=== PATIENT | male | born 1940 | race Caucasian/White ===

== ENCOUNTER → 2016-05-02 | Outpatient (CLI) | payer MEDICARE ==
[~2016-05-02] MED LIST: ASPIRIN LO-DOSE81 MG PO; LEVOTHROID(SYN75 MCG PO; LOPRESSOR25 MG PO
--- NOTE | ~2016-05-02 | ESTC ---
Cardiac Perfusion Imaging Demographics Patient Name KATERINA Vinson Gender Male Patient Number [id number] Race Visit Number [id number] Ethnicity Corporate ID Room Number Accession Number [id number] Height 71 inches Date of 1940 Weight 270 pounds Manny Manriquez Interpreting Physician Manny Date of study 05/02/2016 Mitra Supervising /EMILY Hood APRN NM Technologist Nidia Martinez Ordering Physician Stress lead slot technician Stress ECG Reading Jose Hood APRN Nurse Rita Polo RN Physician The procedure was explained in detail to the patient. Risks, complications and alternative treatments were reviewed. Written consent was obtained. Medications Reviewed with Patient prior to Procedure. Procedure Admit Source:Other. Procedure Type: Nuclear Stress Test:Exercise, Cardiolite Stress Test Procedure Start time: 05/02/2016 00:00 Indications: Dyspnea. Risk Factors The patient risk factors include:obesity, former tobacco use, hypercholesterolemia, family history of premature CAD and dyslipidemia. Conclusions Summary Perfusion Images: The overall quality of the study is good. Left ventricular cavity is noted to be normal on the stress and rest studies. There is no evidence of abnormal lung activity. The right ventricle is not visualized and cannot be assessed. Stress SPECT images and Rest SPECT images demonstrate homogenous tracer distribution throughout the myocardium except for a decrease uptake in the area involving the inferior wall with minimal reversibility in the basal inferior wall mostly consistent with soft tissue attenuation. Gated SPECT imaging reveals normal myocardial thickening and wall motion. The left ventricular ejection fraction was calculated to be 65%. Impression ECG portion of stress test is clinically negative for ischemia by diagnostic criteria. The inferior wall mostly matched defect with minimal reversibility in the basal inferior wall is likely due to soft tissue attenuation. Overall left ventricular systolic function was normal without regional wall motion abnormalities. There are no previous studies for comparison . Stress Protocols Resting ECG Normal sinus rhythm. Resting HR:68 bpm Resting BP:143/77 mmHg Pre-stress physical exam: Patient assessed by Mihai JIMENEZ prior to testing. Chest - CTA Cardio - RRR, S1, S2 Stress Protocol:Exercise Peak HR:134 bpm HR response: Appropriate Peak BP:160/82 mmHg BP response: Appropriate Predicted HR: 143 bpm HR/BP product:51716 % of predicted HR: 94 Reason for termination:Target heart rate ECG Findings No ECG changes suggestive of ischemia. Arrhythmias Rare PVC's during peak exercise Symptoms Shortness of breath - Similar to walking up a flight of stairs at home. Complications Procedure complication: None. Stress Interpretation Walked for 4.5 minutes through 2 stages of Fred Protocol. Appropriate hemodynamic response to exercise. No significant ST-T wave changes with exercise. EKG portion is negative for ischemia by diagnostic criteria. The Owens Treadmill score was 4.5 .This corresponds to a moderate risk stress test. Will correlate with nuclear images. Imaging Results Summed scores - Summed stress score: 2 - Summed rest score: 2 - Summed difference score: 0 Stress ejection Ejection fraction:64 % EDV :95 ml ESV :34 ml Stroke volume :61 ml LV mass :130 gr Imaging Protocols Rest Stress Isotope:Tc99m Sestamibi IV Isotope: Tc99m Sestamibi IV Isotope dose:15.2 mCi Isotope dose:45.5 mCi Date:05/02/2016 07:10 Date:05/02/2016 09:14 Technique: SPECT Technique: Gated Supine SPECT Supine Scan Time:45-60 minutes post Scan Time:45-60 minutes post injection injection Medical History Admission Medications + +------+ + + +---------+ !Name !Dosage!Times per day !Start date !Stop date !Details ! + +------+ + + +---------+ !Aspirin (any) ! ! ! ! ! ! + +------+ + + +---------+ Admission Data Admission date: 05/02/2016 Admission Time: 06:56 Hospital Status: Outpatient. Signatures dtt: MITRA HUMPHREYS dtd: 05/02/16 0000 Physician Self Edit
== END | disposition disaster alternative care site (69) ==
LOC: GRAD 06:56
DX: R07.9 Chest pain, unspecified (principal); E66.9 Obesity, unspecified; E78.00 Pure hypercholesterolemia, unspecified; E78.5 Hyperlipidemia, unspecified; R06.00 Dyspnea, unspecified; Z86.79 Personal history of other diseases of the circulatory system
CPT/HCPCS: A9500

== ENCOUNTER → 2016-05-02 | Outpatient (CLI) | payer MEDICARE ==
--- NOTE | ~2016-05-02 | PUL ---
PATIENT'S NAME: ERA BORGES [facility] AGE: 76 Y [address] ROOM: [place] [address] LOCATION: [facility] ADMIT DATE: 05/02/2016 Pulmonary DISCHARGE DATE: FAMILY PHYSICIAN: Thomas Washburn MD ATTENDING PHYSICIAN: JARED HUMPHREYS NAME OF PROCEDURE: Pulmonary Function Test DATE OF PROCEDURE: May 02, 2016. TECH: JHoyt, SAF[employer]OX[employer] CUSTODIAN REASON FOR EXAM: Dyspnea RESULTS: 1. FVC was 3.91 liters which is 92% of predicted and normal, FEV1 was 3.15 which is 103% of predicted and normal, and FEV1/FVC was 80% and normal. The flow volume curve revealed flattening of the inspiratory curve which can be suggestive of fixed upper airway obstruction. After bronchodilator administration FVC increased to 4.68 liters which is a 20% increase and FEV1 increased to 3.89 liters which is a 23% increase. FEV1/FVC was 83%. 2. DLCO was 20.4 with an adjusted DLCO of 20.7 which is 81% of predicted and normal. 3. Total lung capacity was 7.55 liters which is 116% of predicted and high, and residual volume was 3.03 liters which is 112% of predicted and normal. PHYSICIAN INTERPRETATION: The patient has possible fixed upper airway obstruction but has no airflow limitation during expiratory phase. He had a positive bronchodilator response. His diffusion capacity is normal. There is evidence of hyperinflation on the lung volumes. MD ROSINA FABIAN/joanna /[id number] dtt: 05/09/16 0755 , XIN VALENZUELA dtd: 05/08/16 1126
== END | disposition disaster alternative care site (69) ==
LOC: GRTH 16:53
DX: R07.9 Chest pain, unspecified (principal); R06.00 Dyspnea, unspecified

== ENCOUNTER 2016-05-17 06:54 | Outpatient (CLI) | payer MEDICARE ==
[~2016-05-17] VITALS: Ht 179.1 cm; Wt 121.0 kg
--- NOTE | ~2016-05-17 | CATH ---
Cardiac Diagnostic Report Demographics Patient Name KATERINA Vinson Gender Male Date of 1940 Age 76 year(s) Patient Number [id number] Date of Study 05/17/2016 Visit Number [id number] Room Number G63[address] [place] [id number] Ht 177.8 cm Wt 121 kg Referring Wu Sigala MD Primary Physician Physician Performing Yerra Secondary Physician Physician Mitra Diagnostic Dukerra Assisting Physician Physician Mitra Interventional Physician Commercial Drafter Physician Findings and Conclusions Diagnostic Findings and Conclusion Co-Dominant L Main: No significant stenosis LAD: Mid 20% stenosis L CX: No significant epicardial disease RCA: mid 20% stenosis Diagnostic Recommendations 2. Medical Therapy. Procedure Description The patient was brought to the diagnostic cardiac catheterization-EP laboratory in the fasting, non-sedated state. Informed consent was obtained in the written and verbal form after the risks and benefits were explained. The patient had no further questions and agreed to proceed. The planned puncture-incision site(s) were shaved and prepped with ChloraPrep and draped in the usual sterile manner. Conscious sedation, supplemental oxygen, and pain control medications were delivered by a registered nurse under physician guidance. Surface ECG rhythm, blood pressure measurement, and pulse oximetry were monitored throughout the procedure. Arterial access. The access site on right wrist was infiltrated with lidocaine. The vessel was entered with the Seldinger technique. A sheath was advanced into the vessel and used for catheter placement. Selective left coronary angiography. A catheter was advanced into the left coronary vessel ostium under Fluoroscopic guidance. Contrast was injected by hand. Images were obtained in multiple projections. Selective right coronary angiography. A catheter was advanced into the right coronary vessel ostium under fluoroscopic guidance. Contrast was injected by hand. Images were obtained in multiple projections. Arterial artery hemostasis was achieved. The patient was transferred to a regular nursing floor via cart accompanied by a nurse. The patient left the laboratory in stable condition. Diagnostic Cath Status: Elective Procedure Procedure Type Diagnostic procedure:Angiography:, Coronary Angios Indications: Positive Standard Stess: Intermediate. The procedure was explained in detail to the patient. Risks, complications and alternative treatments were reviewed. Written consent was obtained. Medications Reviewed with Patient prior to Procedure. Angiographic Findings Dominance: Mixed Cardiac Arteries and Lesion Findings LMCA: Normal (0% Stenosis). LAD: Abnormal. Lesion on Mid LAD: Mid subsection.30% stenosis . LCx: Normal (0% Stenosis). RCA: Abnormal. Lesion on Mid RCA: Mid subsection.20% stenosis . Coronary Tree Procedure Data Procedure Date Date: 05/17/2016Start: 09:18 AMEnd: 09:50 AM Entry Locations - Retrograde Percutaneous access was performed through the Right Radial artery (Primary location). A 6 Fr sheath was inserted. Hemostasis was successfully obtained using Mechanical Compression. Closure Comments: 14 in the r-band. Done by janell limon. Procedure Medications Order and Administration + + + +-------+ !Time !Medication !Dosage !Route ! + + + +-------+ !05/17/2016 09:13 AM !Versed !1 mg !I.V. ! + + + +-------+ !05/17/2016 09:13 AM !Fentanyl !50 mcg !I.V. ! + + + +-------+ !05/17/2016 09:25 AM !Radial Verapamil !1.5 mg !I.A. ! + + + +-------+ !05/17/2016 09:26 AM !Radial Nitroglycerin !200 mcg !I.A. ! + + + +-------+ !05/17/2016 09:28 AM !Heparin (ACC_3) !5000 units !I.V. ! + + + +-------+ !05/17/2016 09:28 AM !Oxygen !2 l/min !NC ! + + + +-------+ !05/17/2016 09:43 AM !Oxygen !0 l/min !NC ! + + + +-------+ Devices Used - A5 Fr. BS JR 4 Diag. Catheterwas used for:Right coronary angiography. - A5 Fr. BS JL 3.5 Diag. Catheterwas used for:Left coronary angiography. Contrast Material - Isovue 46258 ml Fluoroscopy Time: Diagnostic: 4:36 minutes. Total: 4:36 minutes. Fluoroscopy Dose: Diagnostic: 945 mGy. Total: 945 mGy. Estimated Blood Loss: 10 ml. Medical History Risk Factors The patient risk factors include:treated and uncontrolled hypercholesterolemia, treated and uncontrolled hypertension, family history of premature CAD, dyslipidemia and former tobacco use. Admission Data Admission Date: 05/17/2016 Admission Time: 06:54 AM Admit Source: Other Insurance Payors: Medicare. Admission Medications + +------+------+ + + + + !Medication !Dosage!Times !Last !Last !Administered !Comments ! ! ! !Per !Delivery !Delivery ! ! ! ! ! !Day !Date !Time ! ! ! + +------+------+ + + + + !Aspirin ! ! ! ! ! ! ! !(any) ! ! ! ! ! ! ! + +------+------+ + + + + !Beta ! ! ! ! ! ! ! !Sandra ! ! ! ! ! ! ! !(any) ! ! ! ! ! ! ! + +------+------+ + + + + Clinical Evaluation Leading to Procedure - The patient's CAD presentation was assessed as: Unstable angina. - The patient's anginal syndrome during the past two weeks was assessed as: Class II according to the [place] Cardiovascular Society Classification System (CCS). Anti-anginal medications were prescribed during the past two weeks. The medication is: Beta Blockers. Hemodynamics Condition: Rest O2 Consumption: Estimated: 260.62Heart Rate: 59 bpm Pressures (mmHg) +-----+ + !Site !Pressure ! +-----+ + !AO !87/59 (71) ! +-----+ + Shunts Oxygen Values O2 Capacity 198.56 O2 Consumption 260.62 Signatures dtt: MITRA HUMPHREYS dtd: 05/17/16 0918 Physician Self Edit
[2016-05-17 07:26] LABS: BASOPHIL # 0.1 K/uL (0.0-0.2); BASOPHIL % 0.5 %; EOSINOPHIL # 0.2 K/uL (0.0-0.5); EOSINOPHIL % 1.4 %; HEMATOCRIT 43.6 % (37.0-53.0); HEMOGLOBIN 14.6 g/dL (11.0-16.0); IMMATURE GRANULOCYTE % 0.3 %; LYMPHOCYTE # 4.2 K/uL (0.8-4.0); MCH 29.3 pg (27.0-34.0); MCHC 33.5 gm/dL (32.0-36.5); MCV 87.4 fl (83.0-98.0); MONOCYTE # 0.7 K/uL (0.0-1.0); MONOCYTE % 6.5 %; MPV 9.5 fl (9.4-12.4); NEUTROPHIL # (ANC) 5.6 K/uL (1.4-9.0); NEUTROPHIL % 52.3 %; NRBC % 0 /100WBC (0-0.00); PLATELET COUNT 223 K/uL (150-450); RBC 4.99 M/uL (3.50-5.50); RDW-CV 13.2 % (11.9-14.6); WBC 10.8 K/uL (4.0-11.0)
[2016-05-17 07:34] LABS: PROTIME 10.8 SECONDS (9.6-11.1); PTT 28 SECONDS (25-32)
[2016-05-17 07:42] LABS: ALBUMIN 3.9 gm/dL (3.5-5.0); ANION GAP 12.4 (10.0-19.0); CALCIUM 8.4 mg/dL (8.5-10.5); CREATININE 1.2 mg/dL (0.6-1.3); POTASSIUM 4.4 mMol/L (3.7-5.1); TOTAL BILIRUBIN 0.4 mg/dL (0.0-1.5); TOTAL PROTEIN 7.6 g/dL (6.0-8.4)
== END 2016-05-17 12:47 | disposition disaster alternative care site (69) ==
LOC: GPCU 06:54 → GCAT 06:54 → GPOC 07:00 → GCAT 12:47
PROVIDERS: Internal Medicine Interventional Cardiology
PROC: B2111ZZ Fluoroscopy of Multiple Coronary Arteries using Low Osmolar Contrast (ICD-10-PCS; principal; 2016-05-17)
DX: I25.110 Atherosclerotic heart disease of native coronary artery with unstable angina pectoris (principal); I10 Essential (primary) hypertension; E78.00 Pure hypercholesterolemia, unspecified; R06.00 Dyspnea, unspecified; M19.90 Unspecified osteoarthritis, unspecified site; E66.9 Obesity, unspecified; K42.9 Umbilical hernia without obstruction or gangrene; Z85.828 Personal history of other malignant neoplasm of skin; Z79.82 Long term (current) use of aspirin; Z79.899 Other long term (current) drug therapy; Z82.49 Family history of ischemic heart disease and other diseases of the circulatory system; Z87.891 Personal history of nicotine dependence
CPT/HCPCS: J1644; J2001; J2250; J3010; J7030

== ENCOUNTER → 2016-06-05 | Outpatient (CLI) | payer MEDICARE | END | disposition disaster alternative care site (69) | LOC: GRAD 09:39 | DX: R06.02 Shortness of breath (principal); R91.8 Other nonspecific abnormal finding of lung field ==

== ENCOUNTER → 2016-06-12 | Outpatient (CLI) | payer MEDICARE ==
--- NOTE | ~2016-06-12 | PUL ---
PATIENT'S NAME: ERA BORGES [facility] AGE: 76 Y [address] ROOM: [place] [address] LOCATION: [facility] ADMIT DATE: 06/12/2016 Pulmonary DISCHARGE DATE: FAMILY PHYSICIAN: Thomas Washburn MD ATTENDING PHYSICIAN: XIN VALENZUELA NAME OF PROCEDURE: Home sleep test DATE OF PROCEDURE: 06/12/16 TECH: Miko Singer [facility] SUMMARY: Patient underwent home sleep testing using a type III device and was studied for 7 hours and 28 minutes. In that time there were 459 apneas and 5 hypopneas for an apnea/hypopnea index severely elevated at 62 events per hour. Among the apneas there were 170 obstructive 39 mixed and 250 central. Oxygen saturations ranged from 79%-89%. Average oxygen saturation was 85%. Heart rate ranged from 60-170 beats per minute. IMPRESSION: Severe complex sleep apnea with significant apneic and nonapneic hypoxemia. PLAN: Would suggest an in lab study for initiation and titration of PAP therapy with the possible addition of oxygen if needed. Patient will receive results from the ordering provider. MD NIKKY BRAND/ /[id number] dtt: 07/02/16 0739 Dalila David E. dtd: 06/15/16 1245
== END | disposition disaster alternative care site (69) ==
LOC: GSLP 06-06 10:43
DX: G47.19 Other hypersomnia (principal); G47.39 Other sleep apnea
CPT/HCPCS: G0399

== ENCOUNTER → 2016-07-02 | Outpatient (CLI) | payer MEDICARE ==
--- NOTE | ~2016-07-02 | PUL ---
PATIENT'S NAME: ERA BORGES [facility] AGE: 76 Y [address] ROOM: [place] [address] LOCATION: [facility] ADMIT DATE: 07/02/2016 Pulmonary DISCHARGE DATE: FAMILY PHYSICIAN: Thomas Washburn MD ATTENDING PHYSICIAN: XIN VALENZUELA NAME OF PROCEDURE: Sleep Study PROCEDURE DATE: 07/02/16 TECH: ANEESH Keating TEST #: [facility]# [id number] TECHNICAL PARAMETERS: The patient was studied using International 10/20 measuring system. While the patient was studied, there was continuous monitoring of EEG (8 leads), EOG (2 leads), EKG (3 leads), submental EMG (3 leads), tibial (4 leads), respiratory inductive plethysmography (RIP) for thoracic and abdominal effort, oral and nasal airflow with a thermocouple and pressure transducer, and oximetry. The bench lay out technician also performed visual and auditory observations noting things like body position, patient's status, breath sounds, artifact, snoring level and patient comments. Continuous sound was monitored using a 2-way speaker system and video monitoring was performed using an infrared camera. Review of the entire study was performed epoch by epoch utilizing a single epoch and multiple epoch capability sleep system. MEDICAL HISTORY: Patient is a 76-year-old overweight gentleman with daytime sleepiness and snoring. SLEEP STAGE SUMMARY: The patient was studied for 374 minutes of which he slept 264 minutes. He fell asleep in 37 minutes and slept for 44% of the night. Sleep architecture revealed a decline in slow wave and REM sleep. RESPIRATORY SUMMARY: Oxygen saturations ranged from 86-94% and were below 88% for fewer than 5 minutes. This study was done to titrate CPAP which was started at 6 cm and titrated to 10 cm with good control of the respiratory events. EKG SUMMARY: Mild sinus bradycardia was noted. LIMB MOVEMENT SUMMARY: Periodic limb movements were noted at times during this study. Overall limb movement index was 68 events per hour. Limb movement with arousals 10.2 events per hour. These persisted even after the sleep apnea was controlled and may be clinically relevant. PATIENT'S NAME: ERA BORGES [facility] AGE: 76 Y [address] ROOM: [place] [address] LOCATION: [facility] ADMIT DATE: 07/02/2016 Pulmonary DISCHARGE DATE: FAMILY PHYSICIAN: Thomas Washburn MD ATTENDING PHYSICIAN: XIN VALENZUELA IMPRESSION: 1. Obstructive sleep apnea responsive to CPAP at 10 cm. 2. Possible periodic limb movement disorder. PLAN: Patient will receive results from the ordering provider. EVI BRUMFIELD MD [facility]/ /[id number] dtt: 07/31/16 0823 , Evi Brumfield. dtd: 07/06/16 1237
== END | disposition disaster alternative care site (69) ==
LOC: GSLP 20:03
DX: G47.31 Primary central sleep apnea (principal); G47.10 Hypersomnia, unspecified; G47.33 Obstructive sleep apnea (adult) (pediatric)